=== PATIENT | male | born 1980 | race Caucasian/White ===

== ENCOUNTER → 2018-06-21 08:10 | Outpatient (CLI) | payer OTHER, SELFPAY ==
--- NOTE | 2018-06-21 08:18 | DI.MRI.S_ITS ---
PROCEDURE: MR HEAD/BRAIN WO CON INDICATIONS: HEADACHES TECHNIQUE: Noncontrast axial T1 spin echo, axial T2 fast spin echo, sagittal and axial FLAIR, coronal T2 fast spin echo, axial gradient echo, axial diffusion and ADC through the brain. COMPARISON: None. FINDINGS: Image quality: Excellent. CSF Spaces: Basal cisterns are patent. No extra-axial fluid collections. Ventricles are normal in size and shape. Brain: No intracranial masses or hemorrhage. Watkins/white matter interface is normal. Brainstem appears normal. Diffusion-weighted images demonstrate no acute ischemic insult. No chronic ischemic insults. Normal intravascular flow voids are present. Skull and face: Calvarium has normal marrow signal. Orbits appear normal. Sinuses: Right maxillary sinus retention cyst is present. Sinuses and mastoids are otherwise clear. IMPRESSION: 1. Negative evaluation of the brain. No explanation for headaches. 2. No recent infarct. Dictated by: Arpit Rowley M.D. on 06/21/2018 at 9:49 Approved by: Arpit Rowley M.D. on 06/21/2018 at 9:51
== END ==
PROVIDERS: Visit Provider Family Medicine
DX: R51 Headache (principal)
CPT/HCPCS: 70551